=== PATIENT | female | born 1970 | race Caucasian/White ===

== ENCOUNTER → 2017-01-08 | Outpatient (CLI) | payer BC ==
[~2017-01-08] MED LIST: CETI10TA84 PO; MECL1TAB42 PO; MEDR150I IM; MEDR150I19 IM
== END | disposition home or self-care (01) ==
LOC: C.PAPS 16:49
PROVIDERS: ATTEND Physician Assistant
DX: Z01.419 Encounter for gynecological examination (general) (routine) without abnormal findings (principal)

== ENCOUNTER 2017-04-25 09:55 | Emergency (ER) | payer BC ==
[~2017-04-25] VITALS: Ht 157.5 cm; Wt 86.7 kg
[~2017-04-25 09:55] MED LIST changes: -MECL1TAB42 PO; -MEDR150I19 IM
[2017-04-25 09:58] VITALS: Ht 157.5 cm; Wt 86.7 kg
--- NOTE | 2017-04-25 10:39 | EMERGENCY ROOM VISIT NOTE ---
History First contact with patient: 10:15 Chief Complaint: ILLNESS Stated Complaint: LIGHTHEADED, DIZZY History of Present Illness The patient is a 46 year old female who presents to the Emergency Room with complaints of "feeling out of it" since Sunday. She describes this as her head feeling full, "like when you take Benadryl." She denies lightheadedness, near- syncope or syncope, vertigo-type symptoms. Her symptoms have been intermittent and worse with position changes, especially standing from sitting or lying down. Associated nausea, no vomiting, diarrhea, constipation, no fevers/chills , no rash. She has been eating and drinking normally and has not had any recent illnesses. She denies any new medications or exposures to explain her symptoms. She denies any recent sick contacts, and has not had any fevers or chills, cough, congestion, sinus pain, ear pain, chest pain, shortness of breath , abdominal pain, urinary symptoms. Review of Systems A complete 10 point review of systems was reviewed with the patient with pertinent positives and negatives as per history of present illness. All else were negative. Past Medical/Surgical History Patient reports history of heart palpitations Family History Diabetes mellitus Heart disease Hypertension Social History Smoking Status: Never Smoker Marital Status: Housing Status: lives with family Occupation Status: employed Current/Historical Medications Scheduled Cetirizine (Zyrtec), 10 MG PO QPM Medroxyprogesterone Acetate (C (Medroxyprogesterone Aceta), 1 DOSE IM [id number] Scheduled PRN Meclizine Hcl (Meclizine Hcl), 1 TAB PO TID PRN for Dizziness or Vertigo Allergies Reviewed in chart Physical Exam Vital Signs Date Time Temp Pulse Resp B/P (MAP) Pulse Ox O2 Delivery O2 Flow Rate FiO2 04/25/17 14:17 83 16 120/72 99 04/25/17 13:03 77 16 126/78 04/25/17 10:58 91 127/83 92 133/83 90 138/88 04/25/17 10:58 Room Air 04/25/17 10:58 Room Air 04/25/17 10:44 88 16 131/84 100 Room Air 04/25/17 09:58 36.7 86 18 159/94 97 Room Air Physical Exam CONSTITUTIONAL: No acute distress. Well hydrated, well appearing and well nourished. Alert and oriented X 4 with normal affect. HEENT: Normocephalic, atraumatic. Pupils equal, round and reactive to light, EOMI. TMs normal. Pharynx normal. Moist mucus membranes. NECK: Supple, full active range of motion without discomfort. RESPIRATORY: Clear to auscultation bilaterally with no wheezing, crackles, rhonchi or stridor. Equal expansion bilaterally. CARDIOVASCULAR: Regular rate and rhythm with no murmurs, rubs or gallops. Normal peripheral perfusion. No edema. GASTROINTESTINAL: Soft, nontender, nondistended. Bowel sounds present in all quadrants. MUSCULOSKELETAL: Full range of motion of all joints without discomfort. INTEGUMENTARY: No rash or other significant dermatologic conditions noted. NEUROLOGIC: Cranial nerves II-XII grossly intact. No focal neurologic deficits noted. Normal strength, normal sensation, normal gait, normal speech. Normal iepior-[id number]-[id number] test, negative Romberg test. Medical Decision & Procedures ER Provider Diagnostic Interpretation: CHEST 2 VIEWS ROUTINE HISTORY: 46 years-old Female WEAKNESS acute weakness and lightheadedness. COMPARISON: Chest radiograph 02/03/2015 TECHNIQUE: PA and lateral views of the chest FINDINGS: Cardiomediastinal and hilar silhouettes are within normal limits. No pneumothorax, pleural effusion or focal airspace consolidation. No overt pulmonary edema. The bones are grossly intact. IMPRESSION: No acute cardiopulmonary process. Laboratory Results 04/25/17 10:43 Red Blood Count 4.75, Mean Corpuscular Volume 88.0, Mean Corpuscular Hemoglobin 31.2, Mean Corpuscular Hemoglobin Concent 35.4, Mean Platelet Volume 9.7, Neutrophils (%) (Auto) 67.9, Lymphocytes (%) (Auto) 25.4, Monocytes (%) (Auto) 4.8, Eosinophils (%) (Auto) 1.4, Basophils (%) (Auto) 0.3, Neutrophils # (Auto) 3.99, Lymphocytes # (Auto) 1.49, Monocytes # (Auto) 0.28, Eosinophils # (Auto) 0.08, Basophils # (Auto) 0.02 04/25/17 10:43 Test 04/25/17 10:43 04/25/17 10:49 04/25/17 12:23 White Blood Count 5.87 K/uL (4.8-10.8) Red Blood Count 4.75 M/uL (4.2-5.4) Hemoglobin 14.8 g/dL (12.0-16.0) Hematocrit 41.8 % (37-47) Mean Corpuscular Volume 88.0 fL (80-100) Mean Corpuscular Hemoglobin 31.2 pg (25-34) Mean Corpuscular Hemoglobin Concent 35.4 g/dl (32-36) Platelet Count 275 K/uL (130-400) Mean Platelet Volume 9.7 fL (7.4-10.4) Neutrophils (%) (Auto) 67.9 % Lymphocytes (%) (Auto) 25.4 % Monocytes (%) (Auto) 4.8 % Eosinophils (%) (Auto) 1.4 % Basophils (%) (Auto) 0.3 % Neutrophils # (Auto) 3.99 K/uL (1.4-6.5) Lymphocytes # (Auto) 1.49 K/uL (1.2-3.4) Monocytes # (Auto) 0.28 K/uL (0.11-0.59) Eosinophils # (Auto) 0.08 K/uL (0-0.5) Basophils # (Auto) 0.02 K/uL (0-0.2) RDW Standard Deviation 42.1 fL (36.4-46.3) RDW Coefficient of Variation 13.1 % (11.5-14.5) Immature Granulocyte % (Auto) 0.2 % Immature Granulocyte # (Auto) 0.01 K/uL (0.00-0.02) Red Blood Cell Morphology Unremarkable Anion Gap 8.0 mmol/L (3-11) Est Creatinine Clear Calc Drug Dose 82.7 ml/min Estimated GFR () 93.2 Estimated GFR (Non- 80.4 BUN/Creatinine Ratio 11.0 (10-20) Calcium Level 9.2 mg/dl (8.5-10.1) Troponin I < 0.015 ng/ml (0-0.045) Thyroid Stimulating Hormone (TSH) 1.520 uIu/ml (0.300-4.500) Bedside Glucose 140 mg/dl (70-90) Urine Color YELLOW Urine Appearance CLEAR (CLEAR) Urine pH 7.0 (4.5-7.5) Urine Specific [place] Sleep 1.021 (1.000-1.030) Urine Protein NEG (NEG) Urine Glucose (UA) NEG (NEG) Urine Ketones NEG (NEG) Urine Occult Blood 2+ (NEG) Urine Nitrite NEG (NEG) Urine Bilirubin NEG (NEG) Urine Urobilinogen NEG (NEG) Urine Leukocyte Esterase NEG (NEG) Urine WBC (Auto) 1-5 /hpf (0-5) Urine RBC (Auto) 10-30 /hpf (0-4) Urine Hyaline Casts (Auto) 1-5 /lpf (0-5) Urine Epithelial Cells (Auto) >30 /lpf (0-5) Urine Bacteria (Auto) NEG (NEG) Urine Test NEG (NEG) Medications Administered Medications (Trade) Dose Ordered Sig/Russ Route Start Time Stop Time Status Last Admin Dose Admin Sodium Chloride 1,000 ml @ 999 mls/hr Q1H1M STAT IV 04/25/17 10:41 04/25/17 11:41 DC 04/25/17 11:23 999 MLS/HR Meclizine HCl (Antivert Tab) 25 mg NOW STAT PO 04/25/17 13:20 04/25/17 13:21 DC 04/25/17 13:25 25 MG Medical Decision CC: Patient presenting with complaint of feeling "out of it" and "like my head is floating" Interpretation of Labs: No leukocytosis, no anemia, no significant electrolyte abnormalities, normal renal function, normal liver enzymes and lipase, normal TSH, negative troponin. UA shows hematuria, otherwise negative, negative urine Differential Diagnosis: Includes, but not limited to dizziness, vertigo, dehydration, orthostasis, electrolyte imbalance, anemia, acute VT, dysrhythmia, among others. Medication Reconciliation: I attest that I have personally reviewed the patient' s current medication list. Vital signs review: I reviewed the patient's vital signs and interpret them as follows: T: Afebrile; BP: Initially hypertensive, trending down to normal; HR : Within normal limits; RR: Within normal limits; Pulse Ox: Within normal limits. Blood pressure screening: The patient was found to have an elevated blood pressure and was referred to their primary doctor for recheck and further treatment. Summary: Patient was evaluated at bedside, history of physical exam performed. Patient is alert and well appearing, no distress, resting calmly in stretcher. Neuro exam is completely benign, with normal balance and gait observed. TMs are clear, no nystagmus. She denies any chest pain or shortness of breath. Patient describes her symptoms as "that full headed feeling you get when you take Benadryl." She specifically denies lightheadedness, near syncope, or vertigo. Orders were placed at bedside for labs, UA and urine , IV fluid bolus for hydration, EKG to evaluate for AMI and dysrhythmias. Given her very vague symptoms and her normal neurologic exam, I do not feel any head imaging is warranted at this time. Patient discussed with Dr. Negorn, who agrees with my assessment and plan. Orthostatic vital signs are negative. Labs reviewed as above, no acute abnormalities. EKG reviewed shows normal sinus rhythm. Chest x-ray is clear. Patient reassessed multiple times throughout ED stay, she states she feels better after IV fluids, but still gets intermittent feelings of her symptoms. She was given meclizine with minimal improvement in her symptoms, will provide Rx for use at home. She has an appointment with her PCP scheduled for tomorrow, I encouraged her to keep this. I also gave her strict return precautions should her symptoms change or worsen in any way, she verbalized understanding. Patient was discharged home in stable condition and him to the door. Medication Reconcilliation Current Medication List: was personally reviewed by me Blood Pressure Screening Patient's blood pressure: Elevated blood pressure Blood pressure disposition: Elevated BP felt to be situational Impression Primary Impression: Dizziness, nonspecific Departure Information Dispostion Home / Self-Care Condition GOOD Prescriptions Meclizine Hcl (MECLIZINE HCL) 25 Mg Tab 1 TAB PO TID Y for Dizziness or Vertigo, #10 TAB Prov: Sharlene De Jesus CRNP 04/25/17 Referrals Bruce Singh M.D. (MEDICAL) (PCP) Patient Instructions ED Dizziness [facility] Additional Instructions Take the meclizine as prescribed, 1/2 to 1 tablet, as needed for symptoms of dizziness or feeling off balance. Use with caution until you know how this medication makes you feel, as it may cause some drowsiness. Drink plenty of fluids to stay well hydrated. Keep your follow-up appointment tomorrow with your PCP. You should also discuss with them that you had blood in your urine today, this should be followed up in a few weeks. Please return to the emergency department for any worsening symptoms, including chest pain, shortness of breath, severe dizziness or passing out, any strokelike symptoms including slurred speech, facial drooping, numbness or weakness on one side of the body, confusion, or any other concerns.
[2017-04-25] MEDS ORDERED: SODIUM CHLORIDE 0.9% 1000ML 1,000 ML IV STA (10:41)
[2017-04-25] MEDS ORDERED: MEDR150I19 IM (11:27)
[2017-04-25 11:36] LABS: HEMATOCRIT 41.8 % (37-47); MEAN CORPUSCULAR HEMOGLOBIN 31.2 pg (25-34); MEAN CORPUSCULAR HGB CONC 35.4 g/dl (32-36); MEAN PLATELET VOLUME 9.7 fL (7.4-10.4); PLATELET COUNT 275 K/uL (130-400); RED BLOOD COUNT 4.75 M/uL (4.2-5.4); WHITE BLOOD COUNT 5.87 K/uL (4.8-10.8)
--- NOTE | 2017-04-25 11:41 | DIAGNOSTIC IMAGING REPORT ---
CHEST 2 VIEWS ROUTINE HISTORY: 46 years-old Female WEAKNESS acute weakness and lightheadedness. COMPARISON: Chest radiograph 02/03/2015 TECHNIQUE: PA and lateral views of the chest FINDINGS: Cardiomediastinal and hilar silhouettes are within normal limits. No pneumothorax, pleural effusion or focal airspace consolidation. No overt pulmonary edema. The bones are grossly intact. IMPRESSION: No acute cardiopulmonary process. The above report was generated using voice recognition software. It may contain grammatical, syntax or spelling errors. Electronically signed by: Chidi Rodriguez M.D. 04/25/2017 11:39 AM Dictated Date/Time: 04/25/2017 11:39 AM
[2017-04-25 11:52] LABS: BLOOD UREA NITROGEN 10 mg/dl (7-18); CALCIUM 9.2 mg/dl (8.5-10.1); CARBON DIOXIDE 23 mmol/L (21-32); CHLORIDE 111 mmol/L (98-107); CREATININE 0.86 mg/dl (0.60-1.20); GLUCOSE 138 mg/dl (70-99); POTASSIUM 3.4 mmol/L (3.5-5.1); SODIUM 142 mmol/L (136-145)
[2017-04-25 12:03] LABS: BASO % 0.3 %; BASO ABS # 0.02 K/uL (0-0.2); COMPLETE YES; EOS % 1.4 %; IG% 0.2 %; LYMPH % 25.4 %; LYMPH ABS # 1.49 K/uL (1.2-3.4); MONO % 4.8 %; NEUT % 67.9 %
[2017-04-25 12:43] LABS: URINE APPEARANCE CLEAR (CLEAR); URINE BILIRUBIN NEG (NEG); URINE COLOR YELLOW; URINE EPITHELIAL CELL AUTO >30 /lpf (0-5); URINE NITRITE NEG (NEG); URINE SPECIFIC GRAVITY 1.021 (1.000-1.030); UROBILINOGEN NEG (NEG)
[2017-04-25 12:48] LABS: MANUAL MICROSCOPIC REQUIRED? NO; REVIEW REQ? NO
[2017-04-25] MEDS ORDERED: MECLIZINE HCL 25 MG TAB PO STA (13:20)
[2017-04-25 13:31] LABS: PREG INTERNAL NEGATIVE QC NEG CLEAR BACKGROUND; PREG INTERNAL POSITIVE QC POS CONTROL LINE
[2017-04-25] MEDS ORDERED: MECL1TAB42 PO (13:45)
[2017-04-25 14:17] VITALS: BP 120/72; PULSE 83; O2SAT 99
== END 2017-04-25 14:16 | disposition home or self-care (01) ==
LOC: C.EDB 09:56
DX: R42 Dizziness and giddiness (principal); Z83.3 Family history of diabetes mellitus; Z82.49 Family history of ischemic heart disease and other diseases of the circulatory system

== ENCOUNTER 2018-10-09 21:54 | Inpatient (IN) ==
[2018-10-09] MEDS ORDERED: ADENOSINE IV SOLN 3 MG/ML 2 ML VIAL IV ONE (22:08)
[2018-10-09] MEDS ORDERED: SODIUM CHLORIDE 0.9% 1000ML 1,000 ML IV SCH (22:15)
[2018-10-09] MEDS ORDERED: LORazepam 2 MG/4 ML VIAL ONE (22:16)
--- NOTE | 2018-10-09 22:24 | XRay Report ---
XR chest 1V portable CLINICAL HISTORY: Atypical chest pain COMPARISON STUDY: 02/03/2015 FINDINGS: The cardiac and mediastinal contours are normal. There is no evidence of focal pulmonary co nsolidation. There is no evidence of failure. No pleural effusions are visualized.[ IMPRESSION: No active disease in the chest. Electronically signed by: Robert Hou M.D. 10/09/2018 10:22 PM
[2018-10-09 22:32] LABS: Hematocrit (blood only) 44.3 % (37-47); Hemoglobin 15.1 g/dL (12.0-16.0); Mean Corpuscular Hgb Conc 34.1 g/dL (32-36); Mean Corpuscular Volume 89.3 fL (80-100); Mean Platelet Volume 9.9 fL (7.4-10.4); Platelet Count 265 K/uL (130-400); RDW Coefficient of Variation 12.6 % (11.5-14.5); RDW Standard Deviation 40.8 fL (36.4-46.3); Red Blood Count 4.96 M/uL (4.2-5.4); White Blood Count 8.52 K/uL (4.8-10.8)
[2018-10-09 22:42] LABS: INR 0.9 (0.9-1.1); Partial Thromboplastin Ratio 0.9; Partial Thromboplastin Time 23.6 Seconds (21.0-31.0); Prothrombin Time 9.3 Seconds (9.0-12.0)
[2018-10-09 22:47] LABS: BUN Creatinine Ratio 10.5 (10-20); Blood Urea Nitrogen 10 mg/dl (7-18); Calcium 8.7 mg/dl (8.5-10.1); Carbon Dioxide 26 mmol/L (21-32); Chloride 108 mmol/L (98-107); Creatinine Clr Calc Pharmacy 67.8 ml/min; Est GFR (African American) 78.5; Est GFR (Non-African American) 67.7; Glucose 135 mg/dl (70-99); Potassium 3.5 mmol/L (3.5-5.1); Sodium 141 mmol/L (136-145)
[2018-10-09 22:52] LABS: Troponin I < 0.015 ng/ml (0-0.045)
[2018-10-09 22:58] LABS: ALC (manual) 5.35 K/uL (1.2-3.4); Lymphocytes # (manual) 1.74 K/uL (1.2-3.4); Lymphocytes % (manual) 20.4 %; Monocytes # (manual) 0.23 K/uL (0.11-0.59); Monocytes % (manual) 2.7 %; Neutrophils % (manual) 34.5 %; RBC Morphology Unremarkable; Reactive Lymphocytes # (manual) 3.61 K/uL
[2018-10-09] MEDS ORDERED: OPTIRAY 320 125ml IV PRN (23:23)
[2018-10-10] MEDS ORDERED: HEPARIN 25000 UNIT/500 ML D5W IV ONE (00:42)
[2018-10-10] MEDS ORDERED: HEPARIN SOD 5,000 UNIT/0.5 ML VIAL ONE (00:42)
[2018-10-10] MEDS ORDERED: POTASSIUM CHLORIDE 20 MEQ TABCR PO STA (00:54)
[2018-10-10 01:24] LABS: Magnesium 1.9 mg/dl (1.8-2.4)
[2018-10-10] MEDS ORDERED: HEPARIN BOLUS ED USE ONLY IV STA (01:32)
--- NOTE | 2018-10-10 01:33 | History & Physical Report ---
Date of Service October 10, 2018 Assessment & Plan (1) Pulmonary embolism, bilateral: Cardiac strain noted on CT chest OCP use as only obvious predisposing factor for now Rule out LE DVT as source PSVT secondary to above Hyperglycemia rule out DM PCU IV heparin Defer discussion regarding oral anticoagulation choices between patient and AM provider. TTE RE PE with possible cardiac strain. LE venous Dopplers ro DVT Check hemoglobin A1C Inpatient Gynecology consultation as per patient request regarding alternative contraception method (Patient known to [facility] [place] [facility] DVT prophylaxis. Heparin Full code History of Present Illness Chief Complaint: Palpitations Primary Care Provider: Dr. Bertrand History obtained from patient, family, and records. Medical history significant for anxiety, hyperlipidemia. 4 years ago patient seen at the ER for palpitations attributed to PVCs. Infrequent episodes after mostly when patient stressed out. Patient was watching television last night when she experienced palpitations, heart racing sensation associated with nausea and lightheadedness. At the ER, patient noted to be in SVT cardiac rate 160-200s. No improvement with vagal maneuvers. Patient converted to NSR after IV adenosine administration. IV heparin started for pulmonary emboli found on CT. No previous episodes in the past. No known family history. No recent mammograms or new breast lumps. No GI complaints. OCP use. 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 Allergies Allergy/AdvReac Type Severity Reaction Status Date / Time ibuprofen Allergy Intermediate FACIAL Verified 10/09/18 22:53 SWELLING Home Medications Home Medications Medication Instructions Recorded Confirmed Type ascorbic acid (vitamin C) [Vitamin 0 mg PO DAILY 10/09/18 10/09/18 History C] cetirizine [Zyrtec] 10 mg PO DAILY 10/09/18 10/09/18 History norethindrone-e.estradiol-iron 1 tab PO DAILY 10/09/18 10/09/18 History [[place] Fe [birth year])] Past Med/Surg History Medical History Heart palpitations (Acute) Family History Other No pertinent family history in first degree relatives Social History Current Living Situation: Family Other Information That Helps Us Care for You: No Feels Safe at Home: Yes Safety Concerns: Feels Safe At This Time Smoking Status: Never smoker Hx Alcohol Use: No Hx Substance Use: No Beliefs That Will Affect Care: None Review of Systems As per HPI, all 10 systems reviewed, all other ROS negative Physical Exam 2 Vital Signs (Past 24 Hours): Last Vital Signs Temp 36.8 C 10/09/18 21:57 Pulse 90 10/10/18 01:00 Resp 18 10/10/18 01:00 BP 123/86 10/10/18 01:00 Pulse Ox 95 10/10/18 01:00 Physical Exam: GENERAL: Comfortable, pleasant, obese, no respiratory distress SKIN: Normal color, warm HEENT: Bespectacled, pink palpebral conjunctivae, no ptosis, dry buccal mucosa NECK : Supple, no tenderness CHEST : CTA, no tenderness HEART : RRR, no obvious murmurs ABDOMEN: Some distention, nontender EXTREMITIES : No LE swelling/tenderness, no other conspicuous deformities noted NEUROLOGIC : Coherent, no facial asymmetry, no other gross focality Results & Data Laboratory Results Laboratory Results WBC 8.52 K/uL (4.8-10.8) 10/09/18 22:10 RBC 4.96 M/uL (4.2-5.4) 10/09/18 22:10 Hgb 15.1 g/dL (12.0-16.0) 10/09/18 22:10 Hct 44.3 % (37-47) 10/09/18 22:10 MCV 89.3 fL (80-100) 10/09/18 22:10 MCH 30.4 pg (25-34) 10/09/18 22:10 MCHC 34.1 g/dL (32-36) 10/09/18 22:10 RDW Std Deviation 40.8 fL (36.4-46.3) 10/09/18 22:10 RDW Coeff of Velvet 12.6 % (11.5-14.5) 10/09/18 22:10 Plt Count 265 K/uL (130-400) 10/09/18 22:10 MPV 9.9 fL (7.4-10.4) 10/09/18 22:10 Neutrophils % (Manual) 34.5 % 10/09/18 22:10 Lymphocytes % (Manual) 20.4 % 10/09/18 22:10 Reactive Lymphs % (Man) 42.4 % 10/09/18 22:10 Monocytes % (Manual) 2.7 % 10/09/18 22:10 Neutrophils # (Manual) 2.94 K/uL (1.4-6.5) 10/09/18 22:10 Total Absolute Neuts 2.94 K/uL (1.4-6.5) 10/09/18 22:10 Lymphocytes # (Manual) 1.74 K/uL (1.2-3.4) 10/09/18 22:10 Reactive Lymphs # 3.61 K/uL 10/09/18 22:10 Total Abs Lymphocytes 5.35 K/uL (1.2-3.4) H 10/09/18 22:10 Monocytes # (Manual) 0.23 K/uL (0.11-0.59) 10/09/18 22:10 RBC Morphology Unremarkable 10/09/18 22:10 PT 9.3 Seconds (9.0-12.0) 10/09/18 22:10 INR 0.9 (0.9-1.1) 10/09/18 22:10 APTT 23.6 Seconds (21.0-31.0) 10/09/18 22:10 PTT Ratio 0.9 10/09/18 22:10 Sodium 141 mmol/L (136-145) 10/09/18 22:10 Potassium 3.5 mmol/L (3.5-5.1) 10/09/18 22:10 Chloride 108 mmol/L (98-107) H 10/09/18 22:10 Carbon Dioxide 26 mmol/L (21-32) 10/09/18 22:10 Anion Gap 7.0 (3-11) 10/09/18 22:10 BUN 10 mg/dl (7-18) 10/09/18 22:10 Creatinine 0.98 mg/dl (0.6-1.2) 10/09/18 22:10 Est Cr Clr Drug Dosing 67.8 ml/min 10/09/18 22:10 Est GFR ( Amer) 78.5 10/09/18 22:10 Est GFR (Non-Af Amer) 67.7 10/09/18 22:10 BUN/Creatinine Ratio 10.5 (10-20) 10/09/18 22:10 Glucose 135 mg/dl (70-99) H 10/09/18 22:10 Calcium 8.7 mg/dl (8.5-10.1) 10/09/18 22:10 Magnesium 1.9 mg/dl (1.8-2.4) 10/09/18 22:10 Troponin I < 0.015 ng/ml (0-0.045) 10/09/18 22:10 TSH 3.180 uIu/ml (0.300-4.500) 10/09/18 22:[address] chest initial read: Bilateral pulmonary emboli, mild flattening interventricular septum likely representing right heart strain. Mild basilar atelectasis EKG as per my interpretation rate 170, SVT
[2018-10-10] MEDS: HEPARIN STANDARD DEXTROSE 25,000 UNITS/500 ML IV SCH ×2 (01:47→04:14)
--- NOTE | 2018-10-10 02:11 | Emergency Department Note ---
Entered by Mohit Tarango acting as a scribe for Gregorio Ny History of Present Illness General Chief complaint: Tachycardia Stated complaint: RACING HEART, PULSE WAS 197 Time Seen by Provider: 10/09/18 22:02 Source: patient History of Present Illness Provider complaint: Palpitations Onset (ago): hour(s) 2 Location: chest Pain Consistency: + constant Relieved By: + none Associated symptoms: + nausea/vomiting (No vomiting) and + other (Lightheaded); no chest pain, no cough, no fever/chills and no shortness of breath The patient is a 48 year old female who presents to the Emergency Room with complaints of constant palpitations that started about 2 hours ago while she was watching TV. With the palpitations she is nauseous and lightheaded but she denies hemoptysis, chest pain or shortness of breath. She also denies any caffeine, drugs, alcohol, long traveling, or pills today but she does normally take control and allergy medication. She also noted that a similar episode has happened to her before, 3 years ago. She came to the ED and was told to follow up with her PCP, but she never has a cardiac work up. Home Medications Home Medications Medication Instructions Recorded Confirmed Type ascorbic acid (vitamin C) [Vitamin 0 mg PO DAILY 10/09/18 10/09/18 History C] cetirizine [Zyrtec] 10 mg PO DAILY 10/09/18 10/09/18 History norethindrone-e.estradiol-iron 1 tab PO DAILY 10/09/18 10/09/18 History [Blisovi Fe 09/08 ()] Allergies Allergy/AdvReac Type Severity Reaction Status Date / Time ibuprofen Allergy Intermediate FACIAL Verified 10/09/18 22:53 SWELLING Past Med/Surg History Medical History Heart palpitations (Acute) Family History Other No pertinent family history in first degree relatives Social History Feels Safe at Home: Yes Smoking Status: Never smoker Review of Systems See HPI for pertinent positives & negatives. and A total of 10 systems reviewed and were otherwise negative Physical Exam Vital Signs Vital Signs - 24 hr 10/09/18 21:57 10/09/18 22:05 10/09/18 22:10 Temperature 36.8 C Temperature Source Oral Sepsis Recent Fever Within 48 Hours No Sepsis New/Unexplained Change in Mental Status No Sepsis Action Taken by Nursing No Action Required Pulse Rate 215 H Pulse Rate [Right Finger] 176 H Pulse Rhythm Regular Pulse Rhythm [Right Finger] Pulse Strength Normal Pulse Strength [Right Finger] Respiratory Rate 22 Respiratory Effort / Characteristics Non-Labored Spontaneous Respiratory Depth Normal Respiratory Pattern Regular Blood Pressure 163/99 H Blood Pressure [Right Arm] 141/110 H Blood Pressure Mean 120 Blood Pressure Mean [Right Arm] 120 Blood Pressure Position Sitting Blood Pressure Position [Right Arm] Sitting Pulse Oximetry 99 96 Oxygen Delivery Method Room Air Room Air 10/09/18 22:31 10/09/18 23:59 10/10/18 01:00 Temperature Temperature Source Sepsis Recent Fever Within 48 Hours Sepsis New/Unexplained Change in Mental Status Sepsis Action Taken by Nursing Pulse Rate Pulse Rate [Right Finger] 100 H 89 90 Pulse Rhythm Pulse Rhythm [Right Finger] Regular Pulse Strength Pulse Strength [Right Finger] Normal Respiratory Rate 18 17 18 Respiratory Effort / Characteristics Non-Labored Spontaneous Non-Labored Spontaneous Non-Labored Spontaneous Respiratory Depth Normal Normal Normal Respiratory Pattern Regular Regular Regular Blood Pressure Blood Pressure [Right Arm] 144/85 H 125/85 123/86 Blood Pressure Mean Blood Pressure Mean [Right Arm] 104 98 98 Blood Pressure Position Blood Pressure Position [Right Arm] Sitting Lying Lying Pulse Oximetry 96 97 95 Oxygen Delivery Method Room Air Room Air Room Air 10/10/18 02:13 Temperature Temperature Source Sepsis Recent Fever Within 48 Hours Sepsis New/Unexplained Change in Mental Status Sepsis Action Taken by Nursing Pulse Rate Pulse Rate [Right Finger] 83 Pulse Rhythm Pulse Rhythm [Right Finger] Pulse Strength Pulse Strength [Right Finger] Respiratory Rate 16 Respiratory Effort / Characteristics Respiratory Depth Normal Respiratory Pattern Blood Pressure Blood Pressure [Right Arm] 130/86 Blood Pressure Mean Blood Pressure Mean [Right Arm] 100 Blood Pressure Position Blood Pressure Position [Right Arm] Lying Pulse Oximetry 98 Oxygen Delivery Method Room Air GENERAL: She is in distress and diaphoretic. HENT: Exam performed. Head: Normocephalic and atraumatic. Right Ear: External ear normal. No mastoid tenderness. Left Ear: External ear normal. No mastoid tenderness. Mouth/Throat: The oropharynx is clear and moist. No trismus in the jaw. No dental abscesses or uvula swelling. No oropharyngeal exudate or tonsillar abscesses. EYES: Conjunctivae and EOM are normal. Pupils are equal, round, and reactive to light. Right eye exhibits no discharge. Left eye exhibits no discharge. No scleral icterus. NECK: Normal range of motion. Neck supple. No JVD present. No spinous process tenderness present. No carotid bruit present. No rigidity. No tracheal deviation and normal range of motion present. No Brudzinski's sign and no Kernig 's sign noted. CV: Tachycardic rate, regular rhythm, normal heart sounds and intact distal pulses. There is no peripheral edema. Palpable radial pulses bue. PULM/CHEST: Effort normal and breath sounds normal. No respiratory distress. No stridor. She has no wheezes. She has no rales. Chest Wall: She exhibits no tenderness. ABD: The abdomen is soft. Bowel sounds are normal. She has no distension. No mass is present. There is no tenderness. There is no rebound, no guarding, no Wolf's sign and no tenderness at McBurney's point. Rovsig negative MUSC/SKEL: Normal range of motion. There is no peripheral edema, tenderness or deformity. LYMPH: No cervical adenopathy. NEURO: She is alert and oriented to person, place, and time. She has normal strength. No cranial nerve deficit or sensory deficit. Coordination and gait normal. GCS eye subscore is 4. GCS verbal subscore is 5. GCS motor subscore is 6. cerbellar tests wnl. SKIN: Skin is warm and diaphoretic. PSYCH: She has a normal mood and affect. Her behavior is normal. Judgment and thought content normal. Course 220: Past medical records reviewed. The patient was evaluated immediately on arrival in resuscitation room A01, and a complete history and physical examination were performed. Patient was placed on the monitor worker found to be in SVT. Large-bore IV access was obtained. Cardioversion pads were applied. An attempt was made to convert the patient using modified vagal maneuvers. These attempts were unsuccessful. 6 mg of adenosine was given IV push the patient. This broke the patient's SVT and put her into a sinus arrhythmia. Her blood pressure and heart rate were stable status post adenosine. 0027: 10. Labs within normal limits. Chest x-ray within normal limits. CTA of the chest showed bilateral PEs with right ventricular strain. I spoke to Dr. Martinez - Kennel Attendant about the patient's case and he states given the patient's vitals are stable and troponin is negative, she is stable enough to be admitted to telemetry floor and does not need ICU monitoring at this time. I agree with Dr. Martinez's assesment. Patient will be started on heparin drip with bolus for her bilateral PEs. 0035: I spoke to Dr. Bella Aragon Hospitalist about the patient's case and he is going to accept her for further evaluation. 0040: I reevaluated the patient and her vital signs are stable and she is stable on the monitor worker. I updated her on her imaging and my conversation with Dr. Martinez. She agrees with the plan. She is not complaining of any chest pain or shortness of breath. She will be started on a Heparin drip. Consultations Consultation #1: I spoke to Dr. Martinez - Kennel Attendant states given the patient's vitals are stable and troponin is negative, she is stable enuh to be admitted to the patient floors. Time: 00:27 Consultation #2: I spoke to Dr. Bella Aragon Hospitalist about the patient 's case and he is going to accept her for further evaluation. Time: 00:35 Administered Medications Heparin Sodium/Dextrose (Heparin Sodium/Dextrose) 25,000 units in 500 mls @ 22 mls/hr IV .[id number] [facility]; Protocol Stop: 11/09/18 01:31 Last Admin: 10/10/18 01:47 Dose: Not Given Ioversol (Optiray 320 125ml) 119 ml IV ONCE PRN PRN Reason: Interaction Checking Stop: 10/13/18 23:22 Last Admin: 10/09/18 23:38 Dose: 1 ml Discontinued Medications Adenosine (Adenosine) Confirm Administered Dose 18 mg IV .STK-MED ONE Stop: 10/09/18 22:09 Last Admin: 10/09/18 22:21 Dose: 6 mg Heparin Sodium (Porcine) (Heparin Sodium (Porcine)) Confirm Administered Dose 10 ,000 units .ROUTE .STK-MED ONE Stop: 10/10/18 00:43 Last Admin: 10/10/18 00:45 Dose: 5,000 units Heparin Sodium (Porcine) (Heparin Iv Bolus) 5,000 units IV NOW STA Stop: 10/10/18 01:33 Last Admin: 10/10/18 01:46 Dose: Not Given Heparin Sodium/Dextrose () 1 ea IV NOW STA; Protocol Stop: 10/10/18 00:30 Last Admin: 10/10/18 00:44 Dose: 1 ea Heparin Sodium/Dextrose (Heparin Sodium/Dextrose) Confirm Administered Dose 25, 000 units IV .STK-MED ONE Stop: 10/10/18 00:43 Last Admin: 10/10/18 00:46 Dose: 1,100 units Sodium Chloride (Nss 1000ml) 1,000 mls @ 999 mls/hr IV .Q1H1M HERIBERTO Stop: 10/09/18 23:15 Last Infusion: 10/09/18 23:37 Dose: Admin: 10/09/18 22:21 Dose: 999 mls/hr Lorazepam (Ativan) Confirm Administered Dose 2 mg .ROUTE .STK-MED ONE Stop: 10/09/18 22:17 Last Admin: 10/09/18 22:21 Dose: 1 mg Potassium Chloride (Klor-Con M20) 50 meq PO NOW STA Stop: 10/10/18 00:55 Last Admin: 10/10/18 01:06 Dose: 50 meq Medical Decision Making Medical Records Attestation: I reviewed the patient's medical records. Home Medications Current Medication List: was personally reviewed by me Laboratory Data Attestation: I reviewed the patient's lab results. Result diagrams: 10/09/18 22:10 10/09/18 22:10 Lab Results 10/09/18 10/09/18 10/09/18 Range/Units 22:10 22:10 22:10 WBC 8.52 (4.8-10.8) K/uL RBC 4.96 (4.2-5.4) M/uL Hgb 15.1 (12.0-16.0) g/dL Hct 44.3 (37-47) % MCV 89.3 (80-100) fL MCH 30.4 (25-34) pg MCHC 34.1 (32-36) g/dL RDW Std Deviation 40.8 (36.4-46.3) fL RDW Coeff of Velvet 12.6 (11.5-14.5) % Plt Count 265 (130-400) K/uL MPV 9.9 (7.4-10.4) fL Neutrophils % (Manual) 34.5 % Lymphocytes % (Manual) 20.4 % Reactive Lymphs % (Man) 42.4 % Monocytes % (Manual) 2.7 % Neutrophils # (Manual) 2.94 (1.4-6.5) K/uL Total Absolute Neuts 2.94 (1.4-6.5) K/uL Lymphocytes # (Manual) 1.74 (1.2-3.4) K/uL Reactive Lymphs # 3.61 K/uL Total Abs Lymphocytes 5.35 H (1.2-3.4) K/uL Monocytes # (Manual) 0.23 (0.11-0.59) K/uL RBC Morphology Unremarkable PT 9.3 (9.0-12.0) Seconds INR 0.9 (0.9-1.1) APTT 23.6 (21.0-31.0) Seconds PTT Ratio 0.9 Sodium 141 (136-145) mmol/L Potassium 3.5 (3.5-5.1) mmol/L Chloride 108 H (98-107) mmol/L Carbon Dioxide 26 (21-32) mmol/L Anion Gap 7.0 (3-11) BUN 10 (7-18) mg/dl Creatinine 0.98 (0.6-1.2) mg/dl Est Cr Clr Drug Dosing 67.8 ml/min Est GFR ( Amer) 78.5 Est GFR (Non-Af Amer) 67.7 BUN/Creatinine Ratio 10.5 (10-20) Glucose 135 H (70-99) mg/dl Calcium 8.7 (8.5-10.1) mg/dl Magnesium 1.9 (1.8-2.4) mg/dl Troponin I < 0.015 (0-0.045) ng/ml TSH 3.180 (0.300-4.500) uIu/ml 10/10/18 Range/Units 01:23 WBC (4.8-10.8) K/uL RBC (4.2-5.4) M/uL Hgb (12.0-16.0) g/dL Hct (37-47) % MCV (80-100) fL MCH (25-34) pg MCHC (32-36) g/dL RDW Std Deviation (36.4-46.3) fL RDW Coeff of Velvet (11.5-14.5) % Plt Count (130-400) K/uL MPV (7.4-10.4) fL Neutrophils % (Manual) % Lymphocytes % (Manual) % Reactive Lymphs % (Man) % Monocytes % (Manual) % Neutrophils # (Manual) (1.4-6.5) K/uL Total Absolute Neuts (1.4-6.5) K/uL Lymphocytes # (Manual) (1.2-3.4) K/uL Reactive Lymphs # K/uL Total Abs Lymphocytes (1.2-3.4) K/uL Monocytes # (Manual) (0.11-0.59) K/uL RBC Morphology PT (9.0-12.0) Seconds INR (0.9-1.1) APTT (21.0-31.0) Seconds PTT Ratio Sodium (136-145) mmol/L Potassium (3.5-5.1) mmol/L Chloride (98-107) mmol/L Carbon Dioxide (21-32) mmol/L Anion Gap (3-11) BUN (7-18) mg/dl Creatinine (0.6-1.2) mg/dl Est Cr Clr Drug Dosing ml/min Est GFR ( Amer) Est GFR (Non-Af Amer) BUN/Creatinine Ratio (10-20) Glucose (70-99) mg/dl Calcium (8.5-10.1) mg/dl Magnesium (1.8-2.4) mg/dl Troponin I 0.042 (0-0.045) ng/ml TSH (0.300-4.500) uIu/ml Imaging Data Radiologist's Impression: Radiology results as stated below per my review and the radiologist's interpretation: XR chest 1V portable CLINICAL HISTORY: Atypical chest pain COMPARISON STUDY: 02/03/2015 FINDINGS: The cardiac and mediastinal contours are normal. There is no evidence of focal pulmonary consolidation. There is no evidence of failure. No pleural effusions are visualized.[ IMPRESSION: No active disease in the chest. Electronically signed by: Robert Hou M.D. 10/09/2018 10:22 PM CTACHEST: Pulmonaryemboli bilaterally. Emboli in the proximal lower lobe arteries extend into multiple segmental and subsegmental branches. Mild flattening of the interventricular septum. Likelyrepresents right heart strain. Mild basilar atelectasis. Otherwise lungs appear clear. Radiologist: Michael Ivory M.D. Study ready at 00:02 and initial results transmitted at 00:23 ECG Data Attestation: I personally reviewed and interpreted this ECG as follows: Indication: tachycardia Rate (beats per minute): 169 Rhythm: SVT Findings: + other (QRS and QTC are within normal limits); no ST depression and no ST elevation Additional Comments: Repeat at 22:15: s/p 6mg Adenosine : Sinus Arrhythmia rate of 117, intervals are within normal limits. No ST elevation or ST depression. Blood Pressure Blood Pressure Findings: Normal blood pressure MDM Narrative 2203: Past medical records reviewed. The patient was evaluated immediately on arrival in resuscitation room A01, and a complete history and physical examination were performed. Patient was placed on the monitor worker found to be in SVT. Large-bore IV access was obtained. Cardioversion pads were applied. An attempt was made to convert the patient using modified vagal maneuvers. These attempts were unsuccessful. 6 mg of adenosine was given IV push the patient. This broke the patient's SVT and put her into a sinus arrhythmia. Her blood pressure and heart rate were stable status post adenosine. 0027: 10. Labs within normal limits. Chest x-ray within normal limits. CTA of the chest showed bilateral PEs with right ventricular strain. I spoke to Dr. Martinez - Kennel Attendant about the patient's case and he states given the patient's vitals are stable and troponin is negative, she is stable enough to be admitted to telemetry floor and does not need ICU monitoring at this time. I agree with Dr. Martinez's assesment. Patient will be started on heparin drip with bolus for her bilateral PEs. 0035: [facility] the patient's case and he is going to accept her for further evaluation. 0040: I reevaluated the patient and her vital signs are stable and she is stable on the monitor worker. I updated her on her imaging and my conversation with Dr. Martinez. She agrees with the plan. She is not complaining of any chest pain or shortness of breath. She will be started on a Heparin drip. Impression & Plan Pulmonary embolism, bilateral, SVT (supraventricular tachycardia) Critical Care Time I have personally spent greater than 77 minutes of critical care time in the direct management of this patient. This includes bedside care, interpretation of diagnostic studies, and testing, discussion with consultants, patient, and family members, and other required patient management activities. This 77 minutes is in excess of all separately billable procedures. Critical Care Time: Yes Total Critical Care Time: 77 Discharge Plan Visit Data Chief Complaint: Tachycardia Stated Complaint: RACING HEART, PULSE WAS 197 ED Provider: Gregorio Ny Discharge Problem: Pulmonary embolism, bilateral, SVT (supraventricular tachycardia) Patient Disposition: Being Evaluated by Hospitalist Forms Stand Alone Forms: My [facility] Prescriptions Prescriptions: No Action cetirizine [Zyrtec] 10 mg Tablet 10 mg PO DAILY RF: 0 norethindrone-e.estradiol-iron [Blisovi Fe 09/08 (28)] 1 mg-20 mcg (21)/75 mg ( 7) tablet 1 tab PO DAILY RF: 0 ascorbic acid (vitamin C) [Vitamin C] 250 mg Tablet PO DAILY RF: 0 Referrals Referrals: Bruce Singh MD [Primary Care Provider] - The scribe's documentation has been prepared under my direction and personally reviewed by me in its entirety. I confirm that the note above accurately reflects all work, treatment, procedures, and medical decision making performed by me.
[2018-10-10] MEDS ORDERED: LACTATED RINGER'S 1,000 ML IV ONE ×2 (02:54→05:43)
[2018-10-10] MEDS ORDERED: LORazepam 0.25 MG/0.5 ML VIAL IV PRN (02:54)
[2018-10-10] MEDS ORDERED: ACETAMINOPHEN 325 MG TAB PO PRN (02:54)
[2018-10-10] MEDS ORDERED: MAGNESIUM SULFATE / D5W 1 GM/100 ML BAG IV ONE (02:54)
[2018-10-10] MEDS ORDERED: PROCHLORPERAZINE 5 MG in SYRINGE 4 ML IV PRN (02:54)
[2018-10-10] MEDS ORDERED: TRAMADOL HCL 50 MG TABLET PO PRN (02:54)
[2018-10-10] MEDS ORDERED: ACETAMINOPHEN 325 MG TAB PO STA (03:08)
[2018-10-10] MEDS ORDERED: METOPROLOL TARTRATE 1 MG/ML VIAL IV ONE (05:43)
[2018-10-10] MEDS ORDERED: METOPROLOL TARTRATE 1 MG/ML VIAL IV STA ×2 (05:43→05:50)
[2018-10-10] MEDS ORDERED: ACETAMINOPHEN 65 ML IV ONE (05:59)
[2018-10-10] MEDS ORDERED: ADENOSINE IV SOLN 3 MG/ML 2 ML VIAL IV STA (05:59)
[2018-10-10] MEDS ORDERED: ADENOSINE IV SOLN 3 MG/ML 2 ML VIAL IV ONE (06:00)
[2018-10-10] MEDS ORDERED: dilTIAZem HCl 5 MG/ML 5 ML VIAL IV STA (06:05)
[2018-10-10 06:15] LABS: Hematocrit (blood only) 43.2 % (37-47); Hemoglobin 14.5 g/dL (12.0-16.0); Mean Corpuscular Hgb Conc 33.6 g/dL (32-36); Mean Corpuscular Volume 90.6 fL (80-100); Mean Platelet Volume 9.7 fL (7.4-10.4); Platelet Count 286 K/uL (130-400); RDW Coefficient of Variation 12.6 % (11.5-14.5); RDW Standard Deviation 41.7 fL (36.4-46.3); Red Blood Count 4.77 M/uL (4.2-5.4); White Blood Count 10.19 K/uL (4.8-10.8)
[2018-10-10 06:26] LABS: Estimated Average Glucose 97 mg/dl
[2018-10-10 06:26] LABS: Partial Thromboplastin Ratio 1.3; Partial Thromboplastin Time 35.2 Seconds (21.0-31.0)
[2018-10-10 06:45] LABS: BUN Creatinine Ratio 9.6 (10-20); Calcium 8.6 mg/dl (8.5-10.1); Creatinine Clr Calc Pharmacy 86.6 ml/min; Est GFR (African American) 106.8; Est GFR (Non-African American) 92.1; Potassium 4.1 mmol/L (3.5-5.1)
[2018-10-10] MEDS ORDERED: HEPARIN IV BOLUS 5,000 UNITS in SYRINGE 0 ML IV ONE (06:45)
--- NOTE | 2018-10-10 07:23 | CT Scan Report ---
CT ANGIOGRAM OF THE CHEST CLINICAL HISTORY: Atypical chest pain. COMPARISON STUDY: Chest x-ray dated 10/09/2018. TECHNIQUE: Following the IV administration of 119 cc of Optiray 320, CT angiogram of the chest was pe rformed from the upper abdomen to the thoracic inlet utilizing the pulmonary embolus protocol. Images are reviewed in the axial, sagittal, and coronal planes. 3-D MIPS images are created and assessed. I V contrast was administered without complication. A dose lowering technique was utilized adhering to the principles of ALARA. CT DOSE: 505.64 mGy.cm FINDINGS: Thyroid: Imaged portions of the thyroid gland are normal in size and attenuation. Thoracic aorta: The thoracic aorta is normal in caliber and demonstrates standard 3-vessel arch anato my. No dissection is seen. Pulmonary vasculature: The pulmonary trunk is normal in caliber. There is bilateral pulmonary embolus . Thrombus is identified in the distal right main pulmonary artery extending into the lower lobe shannen ry. This reaches segmental and subsegmental branches. There is also thrombus present within the left lower lobe pulmonary artery. This extends into segmental branches. Heart: The heart is mildly enlarged and without pericardial effusion. Lungs and pleural spaces: Trace pleural effusions are identified. There is no airspace consolidation typical for pneumonia. The trachea and central airways are clear. Mild diffuse peribronchial thickeni ng is observed. Mediastinum: There is no mediastinal lymphadenopathy. Alexa: Clear. Axillae: There is no axillary lymphadenopathy. Upper abdomen: There is a small hiatal hernia. Partially visualized upper abdominal viscera is otherw ise grossly unremarkable. Skeletal structures: No lytic or blastic bony lesions are seen. IMPRESSION: 1. Bilateral pulmonary emboli as above. 2. Trace pleural effusions are noted. 3. There is no airspace consolidation typical for pneumonia. Electronically signed by: Samuel Vaca M.D. 10/10/2018 7:22 AM
[2018-10-10] MEDS: METOPROLOL SUCC 25MG EXT REL TAB PO SCH (07:32)
[2018-10-10 07:37] LABS: ALC (manual) 4.91 K/uL (1.2-3.4); Basophils # (manual) 0.09 K/uL (0-0.2); Basophils % (manual) 0.9 %; Eosinophils # (manual) 0.18 K/uL (0-0.5); Eosinophils % (manual) 1.8 %; Lymphocytes # (manual) 1.64 K/uL (1.2-3.4); Lymphocytes % (manual) 16.1 %; Monocytes # (manual) 0.18 K/uL (0.11-0.59); Monocytes % (manual) 1.8 %; Neutrophils % (manual) 47.3 %; Reactive Lymphocytes # (manual) 3.27 K/uL
--- NOTE | 2018-10-10 10:18 | Ultrasound Report ---
BILATERAL LOWER EXTREMITY VENOUS DOPPLER HISTORY: Pulmonary embolus. Assess for DVT. COMPARISON STUDY: None. FINDINGS: There is normal compressibility, flow, and augmentation within the bilateral lower extremit y deep venous systems. IMPRESSION: No DVT within the right or left lower extremity. Electronically signed by: Campbell Marcus M.D. 10/10/2018 10:17 AM
--- NOTE | 2018-10-10 10:21 | Cardiology Consultation ---
Date of Consultation October 10, 2018 Assessment & Plan (1) Pulmonary embolism, bilateral: Her pulmonary emboli were most likely contributed to by her use of estrogen products. She is currently hemodynamically stable. I will review the echocardiogram when it is complete but my exam does not suggest right heart strain. She is currently on heparin and I think you can transition her to an oral anticoagulant. (2) SVT (supraventricular tachycardia): This was a narrow complex tachycardia with high heart rates. Very regular. I do not believe that this is a reentry tachycardia or concealed bypass tract. She has no prior history of tachycardias or arrhythmias. This is most likely atrial flutter with a rapid response. At this time I would continue metoprolol. As mentioned above she has an echocardiogram pending. TSH was normal. History of Present Illness Attending Physician: Татьяна Parks DO History of Present Illness This is a pleasant 48-year-old female with no prior history of heart disease. Last evening she was in her usual state of good health and had a sudden onset of tachycardia. She was transported to the emergency department where she was noted to be in a narrow complex arrhythmia. She was given adenosine metoprolol and Cardizem which eventually broke her arrhythmia to sinus mechanism. A CT of the chest was performed that showed bilateral pulmonary emboli. She has no prior history of DVT or embolic events. She has been on OPC's as her only risk factor. Allergies Allergy/AdvReac Type Severity Reaction Status Date / Time ibuprofen Allergy Intermediate FACIAL Verified 10/09/18 22:53 SWELLING Home Medications Home Medications Medication Instructions Recorded Confirmed Type ascorbic acid (vitamin C) [Vitamin 0 mg PO DAILY 10/09/18 10/09/18 History C] cetirizine [Zyrtec] 10 mg PO DAILY 10/09/18 10/09/18 History norethindrone-e.estradiol-iron 1 tab PO DAILY 10/09/18 10/09/18 History [Blisovi Fe 09/08 (28)] Patient History Medical History Heart palpitations (Acute) Family History Other No pertinent family history in first degree relatives Social History Current Living Situation: Family Other Information That Helps Us Care for You: No Feels Safe at Home: Yes Safety Concerns: Feels Safe At This Time Smoking Status: Never smoker Hx Alcohol Use: No Hx Substance Use: No Beliefs That Will Affect Care: None Review of Systems Review of Systems: See HPI for pertinent positives. All other 10 point review of systems are negative. Physical Exam 2 Vital Signs (Past 24 Hours): Last Vital Signs Temp 36.8 C 10/10/18 07:30 Pulse 70 10/10/18 07:30 Resp 16 10/10/18 07:30 BP 124/89 10/10/18 07:30 Pulse Ox 98 10/10/18 07:30 Physical Exam: General: no acute distress and stated age Head: normocephalic, no masses, lesions, tenderness or abnormalities Eyes: conjunctiva are pink and non-injected, sclera clear Neck: supple, no adenopathy, no bruits, normal jugular venous pulse, no hepatojugular reflux Chest: normal shape and normal respiratory effort Lungs: clear to auscultation and percussion Cardiac Exam: - regular rate & rhythm, no murmurs gallops or rubs - normal S1, normal S2 Pulses: 2(+) throughout Abdomen: abdomen soft, non-tender, no abnormal masses and no hepatosplenomegaly Musculoskeletal: no gait disturbance, no joint inflammation, no deforming arthritis Extremities: no edema and no cyanosis Neuro: grossly normal exam Results & Data Laboratory Results Laboratory Results - last 24 hr 10/09/18 10/09/18 10/09/18 02:10 22:10 22:10 WBC 8.52 RBC 4.96 Hgb 15.1 Hct 44.3 MCV 89.3 MCH 30.4 MCHC 34.1 RDW Std Deviation 40.8 RDW Coeff of Velvet 12.6 Plt Count 265 MPV 9.9 Neutrophils % (Manual) 34.5 Lymphocytes % (Manual) 20.4 Reactive Lymphs % (Man) 42.4 Monocytes % (Manual) 2.7 Eosinophils % (Manual) Basophils % (Manual) Neutrophils # (Manual) 2.94 Total Absolute Neuts 2.94 Lymphocytes # (Manual) 1.74 Reactive Lymphs # 3.61 Total Abs Lymphocytes 5.35 H Monocytes # (Manual) 0.23 Eosinophils # (Manual) Basophils # (Manual) RBC Morphology Unremarkable PT 9.3 INR 0.9 APTT 23.6 PTT Ratio 0.9 Sodium Potassium Chloride Carbon Dioxide Anion Gap BUN Creatinine Est Cr Clr Drug Dosing Est GFR ( Amer) Est GFR (Non-Af Amer) BUN/Creatinine Ratio Glucose Estimat Average Glucose Hemoglobin A1c Calcium Magnesium Troponin I Procalcitonin < 0.05 TSH 10/09/18 10/09/18 10/10/18 22:10 22:10 01:23 WBC RBC Hgb Hct MCV MCH MCHC RDW Std Deviation RDW Coeff of Velvet Plt Count MPV Neutrophils % (Manual) Lymphocytes % (Manual) Reactive Lymphs % (Man) Monocytes % (Manual) Eosinophils % (Manual) Basophils % (Manual) Neutrophils # (Manual) Total Absolute Neuts Lymphocytes # (Manual) Reactive Lymphs # Total Abs Lymphocytes Monocytes # (Manual) Eosinophils # (Manual) Basophils # (Manual) RBC Morphology PT INR APTT PTT Ratio Sodium 141 Potassium 3.5 Chloride 108 H Carbon Dioxide 26 Anion Gap 7.0 BUN 10 Creatinine 0.98 Est Cr Clr Drug Dosing 67.8 Est GFR ( Amer) 78.5 Est GFR (Non-Af Amer) 67.7 BUN/Creatinine Ratio 10.5 Glucose 135 H Estimat Average Glucose 97 Hemoglobin A1c 5.0 Calcium 8.7 Magnesium 1.9 Troponin I < 0.015 0.042 Procalcitonin TSH 3.180 10/10/18 10/10/18 10/10/18 05:42 05:42 05:42 WBC 10.19 RBC 4.77 Hgb 14.5 Hct 43.2 MCV 90.6 MCH 30.4 MCHC 33.6 RDW Std Deviation 41.7 RDW Coeff of Velvet 12.6 Plt Count 286 MPV 9.7 Neutrophils % (Manual) 47.3 Lymphocytes % (Manual) 16.1 Reactive Lymphs % (Man) 32.1 Monocytes % (Manual) 1.8 Eosinophils % (Manual) 1.8 Basophils % (Manual) 0.9 Neutrophils # (Manual) 4.82 Total Absolute Neuts 4.82 Lymphocytes # (Manual) 1.64 Reactive Lymphs # 3.27 Total Abs Lymphocytes 4.91 H Monocytes # (Manual) 0.18 Eosinophils # (Manual) 0.18 Basophils # (Manual) 0.09 RBC Morphology PT INR APTT 35.2 H PTT Ratio 1.3 Sodium 139 Potassium 4.1 D Chloride 108 H Carbon Dioxide 24 Anion Gap 7.0 BUN 7 Creatinine 0.76 Est Cr Clr Drug Dosing 86.6 Est GFR ( Amer) 106.8 Est GFR (Non-Af Amer) 92.1 BUN/Creatinine Ratio 9.6 L Glucose 98 Estimat Average Glucose Hemoglobin A1c Calcium 8.6 Magnesium Troponin I Procalcitonin TSH Medications Administered Current Inpatient Medications Acetaminophen (Tylenol) 650 mg PO Q4H PRN PRN Reason: Pain or Fever Stop: 11/09/18 02:53 Heparin Sodium/Dextrose (Heparin Sodium/Dextrose) 25,000 units in 500 mls @ 27 mls/hr IV .[id number] [facility]; Protocol Stop: 11/09/18 01:31 Last Titration: 10/10/18 07:19 Dose: 1,350 units/hr, 27 mls/hr Lorazepam (Ativan) 0.25 mg in 0.5 mls @ 0.5 mls/min IV Q4H PRN PRN Reason: Anxiety/Agitation Stop: 11/09/18 02:53 Prochlorperazine 5 mg/ Syringe 5 mls @ 5 mls/min IV Q6H PRN PRN Reason: Nausea And Vomiting Stop: 11/09/18 02:53 Lactated Ringer's (Lr) 1,000 mls @ 80 mls/hr IV .[id number] ONE Stop: 10/10/18 15:23 Last Admin: 10/10/18 03:54 Dose: 80 mls/hr Metoprolol Succinate (Toprol Xl) [facility] [place] Stop: 11/09/18 08:59 Last Admin: 10/10/18 07:32 Dose: 25 mg Tramadol HCl (Ultram) 25 - 50 mg PO Q4H PRN PRN Reason: Pain Stop: 11/09/18 02:53
--- NOTE | 2018-10-10 12:32 | OB/GYN Consultation ---
Date of Consultation October 10, 2018 48-year-old woman who is admitted for pulmonary embolus patient was on oral contraceptives and obviously has been stopped patient is interested in options for contraception. She states her periods are often heavy and irregular and this was the reason she was using the control pill she says her blood pressure has been borderline as well and has been followed up in the office for this. She states to no other major medical problems Assessment & Plan (1) Contraception: Reviewed the options for the patient these would include intrauterine device and barrier methods. Combination control pills or hormonal options such as Depo-Provera Nexplanon or progesterone only options would not be acceptable with a pulmonary embolus I have given the patient information and she will contact the office for more information about the intrauterine device Total time spent counseling and discussing 30 minutes History of Present Illness Attending Physician: Татьяна Parks DO Allergies Allergy/AdvReac Type Severity Reaction Status Date / Time ibuprofen Allergy Intermediate FACIAL Verified 10/09/18 22:53 SWELLING Home Medications Home Medications Medication Instructions Recorded Confirmed Type ascorbic acid (vitamin C) [Vitamin 0 mg PO DAILY 10/09/18 10/09/18 History C] cetirizine [Zyrtec] 10 mg PO DAILY 10/09/18 10/09/18 History norethindrone-e.estradiol-iron 1 tab PO DAILY 10/09/18 10/09/18 History [Blisovi Fe 09/08 (28)] Patient History Medical History Heart palpitations (Acute) Family History Other No pertinent family history in first degree relatives Social History Current Living Situation: Family Other Information That Helps Us Care for You: No Feels Safe at Home: Yes Safety Concerns: Feels Safe At This Time Smoking Status: Never smoker Hx Alcohol Use: No Hx Substance Use: No Beliefs That Will Affect Care: None Physical Exam 2 Vital Signs (Past 24 Hours): Last Vital Signs Temp 36.9 C 10/10/18 11:54 Pulse 61 10/10/18 11:54 Resp 18 10/10/18 11:54 BP 117/83 10/10/18 11:54 Pulse Ox 97 10/10/18 11:54
--- NOTE | 2018-10-10 12:57 | Hospitalist Progress Note ---
Date of Service October 10, 2018 Assessment & Plan (1) Pulmonary embolism, bilateral: Likely 2/2 OCP use, which has been stopped. Normal echo without strain. Heparin drip started. I discussed options of Apixaban vs warfarin and we will transition her to the former. (2) SVT (supraventricular tachycardia): Last episode was this morning for 30 minutes. Metoprolol started. Apprec Cardiology recs. (3) DVT prophylaxis: apixaban. Full Code Dispo-to home in next 1-2 dayd Татьяна Parks DO [facility] Hospitalist Subjective 48 yo F who presents with SVT and was found to have a PE. Denies h/o personal or family blood clots. Using OCPs as outpatient. Tolerating PO, otherwise she is asymptomatic. Physical Exam 2 Vital Signs (Past 24 Hours): Last Vital Signs Temp 36.9 C 10/10/18 11:54 Pulse 61 10/10/18 11:54 Resp 18 10/10/18 11:54 BP 117/83 10/10/18 11:54 Pulse Ox 97 10/10/18 11:54 CONSTITUTIONAL: WNWD, vitals as above, generally well-appearing EYES: normal conjuctivae, no scleral icterus ENT: MMM RESPIRATORY: clear to auscultation bilaterally, no crackles, rales or wheezes, normal respiratory effort CARDIOVASCULAR: regular rate and rhythm, S1 and 2 heard without murmurs, gallops or rubs, no JVD, no peripheral edema GASTROINTESTINAL: soft, nontender, nondistended MUSCULOSKELETAL: strength 5/5 throughout, head is normocephalic and atraumatic SKIN: warm and dry, no rashes NEUROLOGIC: patellar [id number] 2+ bilat. PERRL, EOMI, no facial palsy, no dysarthria. Touch, pain and proprioception normal. CN 2-12 grossly intact, no sensory deficit, normal cognition, normal speech, no tremor PSYCHIATRIC: alert cooperative and oriented to person, place and time. Euthymic mood, makes good eye contact, language grossly intact, recent and remote memory grossly intact. LYMPHATIC: no LAD Results & Data Laboratory Results Short CBC 10/10/18 Range/Units 05:42 WBC 10.19 (4.8-10.8) K/uL Hgb 14.5 (12.0-16.0) g/dL Hct 43.2 (37-47) % Plt Count 286 (130-400) K/uL BMP 10/09/18 10/10/18 22:10 05:42 Sodium 141 139 Potassium 3.5 4.1 D Chloride 108 H 108 H Carbon Dioxide 26 24 BUN 10 7 Creatinine 0.98 0.76 Glucose 135 H 98 Calcium 8.7 8.6 Cardiac Enzymes 10/09/18 10/10/18 Range/Units 22:10 01:23 Troponin I < 0.015 0.042 (0-0.045) ng/ml Medications Administered Current Inpatient Medications Acetaminophen (Tylenol) 650 mg PO Q4H PRN PRN Reason: Pain or Fever Stop: 11/09/18 02:53 Apixaban (Eliquis) 10 mg PO DAILY@0600,1800 [facility] Stop: 10/17/18 23:59 Last Admin: 10/10/18 19:27 Dose: 10 mg Apixaban (Eliquis) 5 mg PO BID [facility] Stop: 11/17/18 08:59 Lorazepam (Ativan) 0.25 mg in 0.5 mls @ 0.5 mls/min IV Q4H PRN PRN Reason: Anxiety/Agitation Stop: 11/09/18 02:53 Prochlorperazine 5 mg/ Syringe 5 mls @ 5 mls/min IV Q6H PRN PRN Reason: Nausea And Vomiting Stop: 11/09/18 02:53 Metoprolol Succinate (Toprol Xl) 25 mg PO QAM [facility] Stop: 11/09/18 08:59 Last Admin: 10/10/18 07:32 Dose: 25 mg Tramadol HCl (Ultram) 25 - 50 mg PO Q4H PRN PRN Reason: Pain Stop: 11/09/18 02:53
[2018-10-10 13:19] LABS: Partial Thromboplastin Ratio 1.8
[2018-10-10 13:23] LABS: Partial Thromboplastin Time 48.1 Seconds (21.0-31.0)
[2018-10-10] MEDS: APIXABAN 5 MG TABLET PO SCH (19:27)
[2018-10-11] MEDS: APIXABAN 5 MG TABLET PO SCH (05:55)
[2018-10-11 06:06] LABS: Partial Thromboplastin Time 26.3 Seconds (21.0-31.0)
[2018-10-11 07:11] VITALS: O2SAT 97
[2018-10-11] MEDS: METOPROLOL SUCC 25MG EXT REL TAB PO SCH (08:14)
--- NOTE | 2018-10-11 10:19 | Cardiology Progress Note ---
Date of Service October 11, 2018 Assessment & Plan (1) Pulmonary embolism, bilateral: The patient has opted for Eliquis as anticoagulation and this medication has been started in anticipation of discharged. From a cardiac standpoint believe the patient may return home to outpatient follow-up. (2) SVT (supraventricular tachycardia): This was most likely associated to her pulmonary emboli. I would recommend continuing the beta-chapis after discharge for now. But at some point I believe that medication could be discontinued. Subjective No new cardiac complaints today. She feels well. Review of the cardiac telemetry indicates no arrhythmias since admission. Physical Exam 2 Vital Signs (Past 24 Hours): Last Vital Signs Temp 36.7 C 10/11/18 07:09 Pulse 63 10/11/18 07:09 Resp 17 10/11/18 07:09 BP 130/74 10/11/18 07:09 Pulse Ox 97 10/11/18 07:09 Physical Exam: General: no acute distress and stated age Head: normocephalic, no masses, lesions, tenderness or abnormalities Eyes: conjunctiva are pink and non-injected, sclera clear Neck: supple, no adenopathy, no bruits, normal jugular venous pulse, no hepatojugular reflux Chest: normal shape and normal respiratory effort Lungs: clear to auscultation and percussion Cardiac Exam: - regular rate & rhythm, no murmurs gallops or rubs - normal S1, normal S2 Pulses: 2(+) throughout Abdomen: abdomen soft, non-tender, no abnormal masses and no hepatosplenomegaly Musculoskeletal: no gait disturbance, no joint inflammation, no deforming arthritis Extremities: no edema and no cyanosis Neuro: grossly normal exam Results & Data Laboratory Results Laboratory Results - last 24 hr 10/10/18 10/11/18 12:49 05:17 APTT 48.1 H* 26.3 PTT Ratio 1.8 1.0
[2018-10-11 11:14] VITALS: PULSE 62; TEMP 98.2
--- NOTE | 2018-10-11 11:58 | Discharge Summary ---
Date of Service October 11, 2018 Admission HPI Per Admitting Provider History obtained from patient, family, and records. Medical history significant for anxiety, hyperlipidemia. 4 years ago patient seen at the ER for palpitations attributed to PVCs. Infrequent episodes after mostly when patient stressed out. Patient was watching television last night when she experienced palpitations, heart racing sensation associated with nausea and lightheadedness. At the ER, patient noted to be in SVT cardiac rate 160-200s. No improvement with vagal maneuvers. Patient converted to NSR after IV adenosine administration. IV heparin started for pulmonary emboli found on CT. No previous episodes in the past. No known family history. No recent mammograms or new breast lumps. No GI complaints. OCP use. 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 Admission Exam Per Admitting Provider GENERAL: Comfortable, pleasant, obese, no respiratory distress SKIN: Normal color, warm HEENT: Bespectacled, pink palpebral conjunctivae, no ptosis, dry buccal mucosa NECK : Supple, no tenderness CHEST : CTA, no tenderness HEART : RRR, no obvious murmurs ABDOMEN: Some distention, nontender EXTREMITIES : No LE swelling/tenderness, no other conspicuous deformities noted NEUROLOGIC : Coherent, no facial asymmetry, no other gross focality Principal Diagnosis SVT Bilateral pulmonary emboli Discharge Data Allergies Allergy/AdvReac Type Severity Reaction Status Date / Time ibuprofen Allergy Intermediate FACIAL Verified 10/09/18 22:53 SWELLING Consultations 10/10/18 01:11 ED Decision to Admit Stat 10/10/18 02:54 Consult Gynecology Routine 10/10/18 05:45 Consult Cardiology Routine Ordered Studies 10/09/18 22:11 CT angio chest PE protocol Stat 10/10/18 02:54 US venous doppler LE BI Routine Hospital Course (1) Pulmonary embolism, bilateral: Likely 2/2 OCP use, which has been stopped. Normal echo without strain. Heparin drip started with transition to apixaban in the hospital. (2) SVT (supraventricular tachycardia): One episode while hospitalized on telemetry. Seen by cardiology who recommends that she continue the metoprolol short term until PE is resolved. SVT was likely related to blood clot. This was conveyed to patient On day of discharge physical exam was unremarkable, she was hemodynamically stable and afebrile with no events on telemetry for 24 hours. She was tolerating the metoprolol and apixaban well. She was tolerating p.o. She was mentating and able letting at baseline and was discharged in stable condition. Total Time Total Time Spent Total Time Spent (In Minutes): 60 Discharge Plan Discharge Items Patient Disposition: Home - Self-Care Reason For Visit: PE Discharge Diagnosis: SVT Bilateral pulmonary emboli Condition: Good Discharge Goals: Therapeutic intervention Activity: Resume your previous activity Non-emergency contact: Primary Care Provider Call non-emergency contact if: you have any medication questions, your symptoms worsen, your pain is not controlled, your pain is worsening, your pain is unusual for you, your pain is concerning for you and you have a fever Diet: Regular Addtl Provider Instructions: Please take all medications as instructed on discharge list below. You are being started on a blood thinner called APIXABAN to take 10mg twice daily for the next 6 days. Then switch to 5mg twice daily for the next 3 months or until you are told to stop. You are also being given METOPROLOL to help with any palpitations, however, this can likely be stopped within the next few months and not taken indefinitely. You have the following appointment scheduled: Date & Time 10/16/2018 11:00 AM Provider Carline Bertrand DO [facility] It was a pleasure taking care of you! Please call if you have any questions or problems. You can reach a [facility] hospitalist on duty at [facility] 24 hours a day by calling [phone]. Take care of yourself. Татьяна Parks DO [facility] Hospitalist Prescriptions: New metoprolol succinate 25 mg Tablet Extended Release 24 Hr 25 mg PO QAM Qty: 30 RF: 1 apixaban [Eliquis] 5 mg tablet 5 mg PO BID Qty: 60 RF: 2 Continued cetirizine [Zyrtec] 10 mg Tablet 10 mg PO DAILY RF: 0 ascorbic acid (vitamin C) [Vitamin C] 250 mg Tablet PO DAILY RF: 0 Discontinued norethindrone-e.estradiol-iron [Blisovi Fe 09/08 (28)] 1 mg-20 mcg (21)/75 mg (7) tablet 1 tab PO DAILY RF: 0 Stand-Alone Forms: [facility] Discharge Orders: Discharge Order (Routine); Ordered 10/11/18 Ordered By: Татьяна Parks Admission Data Admit Date/Time: 10/10/18 01:34 Attending Provider: Татьяна Parks Admit Provider: Walker Blanco Primary Care Provider: Bruce Singh Service: Telemetry Other Interventions: Discharge Summary Assessment (RN) Last Done: 10/11/18 13:41 DC Date/Time DO NOT enter until pt leaves facility: 10/11/18 13:41
[2018-10-11 12:16] VITALS: BP 112/83
[2018-10-18] MEDS ORDERED: APIXABAN 5 MG TABLET PO SCH (09:00)
== END 2018-10-11 13:41 | disposition home or self-care (01) | DRG 176 ==
LOC: ED 21:54 → 2E 10-10 01:34 → SUATTDRO 10-10 01:34 → 2E 10-10 02:19